=== PATIENT | male | born 1950 | race Caucasian/White ===

== ENCOUNTER 2018-04-27 07:46 | Emergency (ER) | payer OTHER ==
[2018-04-27] MEDS ORDERED: ONDANSETRON 4 MG/2 ML VIAL ONE (08:15)
[2018-04-27] MEDS ORDERED: NA CHLORIDE 0.9% 1,000 ML ONE (08:15)
[2018-04-27 08:23] LABS: Absolute Monocytes 0.5 K/uL (0.1-1.3); Absolute Neutrophil 7.2 K/uL (1.8-8.0); Basophils % 0.3 % (0-1.3); Eosinophils % 0.3 % (0-4.4); Hematocrit 48.1 % (39.6-49.0); Lymphocytes % 11.4 % (15.3-44.8); MPV 8.2 fL (7.6-11.3); Monocytes % 6.1 % (3.3-12.3); RBC Red Blood Cell Count 5.26 M/uL (4.33-5.43)
[2018-04-27 08:43] LABS: Albumin 3.6 g/dL (3.4-5.0); Bilirubin Direct 0.2 mg/dL (0-0.2); Bilirubin Total 0.6 mg/dL (0.2-1.0); Potassium 3.4 mmol/L (3.5-5.1); Protein, Total 7.6 g/dL (6.4-8.2)
--- NOTE | 2018-04-27 08:44 | RAD REPORT ---
EXAM DESCRIPTION: RAD - Chest Single View - 04/27/2018 8:34 am CLINICAL HISTORY: subjective fever post surgery Chest pain. COMPARISON: No comparisons FINDINGS: Portable technique limits examination quality. The lungs are grossly clear. The heart is normal in size. No displaced fractures. IMPRESSION: No acute intrathoracic process suspected.
--- NOTE | 2018-04-27 09:19 | RAD REPORT ---
EXAM DESCRIPTION: CTAbdomen Pelvis W Contrast - 04/27/2018 9:06 am CLINICAL HISTORY: Abdominal pain. postoperative prostatectomy;Abd pain;Nausea / vomiting COMPARISON: No comparisons TECHNIQUE: Biphasic CT imaging of the abdomen and pelvis was performed with 100 ml non-ionic IV cont rast. All CT scans are performed using dose optimization technique as appropriate and may include automated exposure control or mA/KV adjustment according to patient size. FINDINGS: The lung bases are clear.Small hiatal hernia is present The liver, spleen, pancreas, adrenal glands and kidneys are within normal limits. Small cysts are pre sent in both kidneys. Postsurgical changes are present in the pelvis of the recent prostatectomy. Mild inflammatory changes and fluid are seen along the pelvic sidewalls and in the inferior aspect of the pelvis. No abscess s een. Andino catheter is present with its tip in the urinary bladder. Bladder is decompressed. Moderate amount of air is seen in the bladder. There is a significant amount subcutaneous air in the abdomen and pelvis extending into the scrotal sac, likely all postoperative in etiology. There is no evidenc e of a bowel obstruction or significant ileus. Normal appendix. Mild lumbosacral degenerative changes. No fracture seen. IMPRESSION: Postsurgical changes are present in the pelvis of recent prostatectomy. No acute process or evidence of bowel obstruction or ileus. Small hiatal hernia is noted.
[2018-04-27 11:13] LABS: Urine Blood 3+ (NEG); Urine Glucose NEGATIVE (NEG); Urine Protein NEGATIVE (NEG)
[2018-04-27 12:49] LABS: Urine Bacteria <20 /HPF (NONE SEEN); Urine Culture Reflex Order NOT NEEDED
--- NOTE | 2018-04-27 14:00 | ER ---
Nurse's Notes [facility] Name: Juvenal Sutton Age: 67 yrs Sex: Male : 1950 Arrival Date: 04/27/2018 Time: 07:47 Bed 19 Private MD: out of town, doctor Diagnosis: Vomiting Presentation: 04/27 07:50 Presenting complaint: Patient states: N/V that began yesterday at 1500. Pt denies pain, ss but does reports that he had prostate surgery 6 days ago and is supposed to get his Andino out tomorrow. Transition of care: patient was not received from another setting of care. Onset of symptoms was April 26, 2018 at 15:00. Risk Assessment: Do you want to hurt yourself or someone else? Patient reports no desire to harm self or others. Initial Sepsis Screen: Does the patient meet any 2 criteria? Does the patient have a suspected source of infection? No. Patient's initial sepsis screen is negative. Care prior to arrival: None. 07:50 Method Of Arrival: Wheelchair ss 07:50 Acuity: ARTURO 3 ss Historical: - Allergies: 07:52 No Known Allergies; ss - Home Meds: 08:01 Cipro 500 mg Oral tab 1 tab every 12 hours [Active]; Colace 100 mg oral cap 1 cap 2 ss times per day [Active]; tramadol 50 mg Oral tab 1 tab every 6 hours [Active]; hydrochlorothiazide 12.5 mg Oral cap [Active]; losartan 50 mg oral tab [Active]; - PMHx: 08:01 Hypertension; Prostate CA; ss - PSHx: 08:01 prostatectomy; ss - Immunization history:: Adult Immunizations up to date. - Social history:: Smoking status: Patient/guardian denies using tobacco. - Ebola Screening: : Patient denies exposure to infectious person Patient denies travel to an Ebola-affected area in the 21 days before illness onset. Screenin:19 Abuse screen: Denies threats or abuse. Denies injuries from another. Nutritional pc1 screening: No deficits noted. Tuberculosis screening: No symptoms or risk factors identified. Fall Risk None identified. Assessment: 08:11 General: Appears uncomfortable, well groomed, Behavior is calm, cooperative. Pain: pc1 Complains of pain in right upper quadrant and left upper quadrant Pain does not radiate. Pain currently is 2 out of 10 on a pain scale. Quality of pain is described as pressure, Pain began 1 day ago. Is intermittent. Neuro: Level of Consciousness is awake, alert, obeys commands, Oriented to person, place, time, situation, Director Work are equal bilaterally Moves all extremities. Full function Speech is normal, Facial symmetry appears normal. Cardiovascular: Capillary refill < 3 seconds Patient's skin is warm and dry. Pulses are 2+ in right radial artery and left radial artery. Respiratory: Airway is patent Respiratory effort is even, unlabored, Respiratory pattern is regular, symmetrical, Breath sounds are clear bilaterally. GI: Abdomen is round non-distended, Bowel sounds present X 4 quads. Abd is soft and non tender X 4 quads. Reports vomiting, since yesterday at approximately 15:00 and stomach pressure Patient currently denies diarrhea, tolerance of fluids, tolerance of food, Stated that he is unable to keep food or liquids down. : Andino in place clamped. EENT: No deficits noted. No signs and/or symptoms were reported regarding the EENT system. Derm: Skin is intact, is healthy with good turgor, Skin is dry, Skin is pink, warm \T\ dry. Musculoskeletal: Circulation, motion, and sensation intact. Range of motion: intact in all extremities. 10:11 Reassessment: Patient and/or family updated on plan of care and expected duration. Pain pc1 level reassessed. Patient is alert, oriented x 3, equal unlabored respirations, skin warm/dry/pink. Stated that the pt does not feel as nauseated as before Patient states symptoms have improved. 11:15 Reassessment: Patient appears in no apparent distress at this time. Patient and/or jl7 family updated on plan of care and expected duration. Pain level reassessed. Patient is alert, oriented x 3, equal unlabored respirations, skin warm/dry/pink. 11:40 Reassessment: Adonis lowry ASSISTANT PROJECT MANAGER at bedside discussing plan of care. jl7 12:10 Reassessment: Provided pt with a cup of water, pt drank and tolerated well. jl7 13:01 Reassessment: Patient appears in no apparent distress at this time. Patient and/or jl7 family updated on plan of care and expected duration. Pain level reassessed. Patient is alert, oriented x 3, equal unlabored respirations, skin warm/dry/pink. Vital Signs: 07:52 Resp 18; Temp 97.9(TE); Weight 95.25 kg; Height 5 ft. 11 in. (180.34 cm); Pain 0/10; ss 08:01 BP 185 / 112; Pulse 104; Pulse Ox 96% on R/A; ss 09:15 BP 187 / 88; Pulse 94; Resp 17; Pulse Ox 96% ; pc1 09:17 BP 186 / 88; Pulse 91; Resp 18; Temp 98.0(O); Pulse Ox 98% on R/A; mh5 10:12 BP 163 / 83; Pulse 84; Resp 18; Pulse Ox 96% on R/A; Pain 0/10; pc1 10:53 BP 172 / 88; Pulse 83; Resp 16 S; Pulse Ox 95% on R/A; jl7 11:45 BP 161 / 83; Pulse 81; Resp 16 S; Pulse Ox 97% on R/A; jl7 13:01 BP 165 / 82; Pulse 79; Resp 18; Pulse Ox 98% ; Pain 0/10; pc1 14:00 BP 160 / 80; Pulse 80; Resp 16 S; Pulse Ox 100% on R/A; jl7 07:52 Body Mass Index 29.29 (95.25 kg, 180.34 cm) ED Course: 07:47 Patient arrived in ED. mr 07:47 Adonis Lowry NP is PHCP. pm1 07:47 Fernando Monsalve MD is Attending Physician. pm1 07:48 out of [facility], doctor is Private Physician. mr 07:52 Triage completed. ss 07:52 Arm band placed on right wrist. ss 08:00 Maxine Johnson, FRANCISCO is Primary Nurse. jl7 08:00 Pulse ox on. NIBP on. jl7 08:19 Patient has correct armband on for positive identification. Placed in gown. Bed in low pc1 position. Call light in reach. Side rails up X2. Adult w/ patient. 08:19 Inserted saline lock: 18 gauge in right forearm, using aseptic technique. pc1 08:22 Initial lab(s) drawn, by me, sent to lab. jl7 08:33 X-ray completed. Portable x-ray completed in exam room. Patient tolerated procedure sw well. 08:34 Chest Single View XRAY In Process Unspecified. EDMS 09:05 CT completed. Patient tolerated procedure well. Patient moved to CT via stretcher. Patient moved back from CT. 09:07 CT Abd/Pelvis - W/Contrast: IV contrast In Process Unspecified. EDMS 09:12 Patient taken to treatment room, Patient moved back from radiology. pc1 12:12 Served as a process helper during rectal exam. jl7 14:17 IV discontinued, intact, bleeding controlled, No redness/swelling at site. Pressure jl7 dressing applied. Administered Medications: 08:05 Drug: NS 0.9% 1000 ml Route: IV; Rate: 1000 ml; Site: right forearm; jl7 09:05 Follow up: IV Status: Completed infusion; IV Intake: 1000ml jl7 08:06 Drug: Zofran 4 mg Route: IVP; Site: right forearm; jl7 10:10 Follow up: Response: No adverse reaction; Marked relief of symptoms; Nausea is decreasedpc1 Intake: 09:05 IV: 1000ml; Total: 1000ml. jl7 Outcome: 13:59 Discharge ordered by . pm1 14:17 Attestation : I agree with everything documented by Adonis Iyer, Student Nurse. jl7 14:17 Discharged to home ambulatory. 14:17 Condition: stable 14:17 Discharge instructions given to patient, Instructed on discharge instructions, follow up and referral plans. medication usage, Demonstrated understanding of instructions, follow-up care, medications, Prescriptions given X 1. 14:18 Patient left the ED. jl7 Signatures: Dispatcher [employer] [facility] Cristina Gao Susan Rosa Vargas RN RN ss Warren, Shannon sw Marinas, Patrick, RAE ASSISTANT PROJECT MANAGER 1 Rhiannon Zhu [facility] Maxine Johnson RN RN jl7 Adonis Iyer [facility] Corrections: (The following items were deleted from the chart) 08:20 08:05 NS 0.9% 1000 ml IV at 1000 ml in right antecubital jl7 jl7 08:20 08:06 Zofran 4 mg IVP in right antecubital jl7 jl7
--- NOTE | 2018-04-27 14:01 | EDPHYS ---
Physician Documentation [facility] Name: Juvenal Sutton Age: 67 yrs Sex: Male : 1950 Arrival Date: 04/27/2018 Time: 07:47 Bed 19 Private MD: out of town, doctor ED Physician Fernando Monsalve HPI: 04/27 08:30 This 67 yrs old Male presents to ER via Wheelchair with complaints of pm1 Vomiting. 08:30 The patient presents to the emergency department with nausea, vomiting. Onset: The pm1 symptoms/episode began/occurred last night. Possible causes: unknown. The symptoms are aggravated by nothing. The symptoms are alleviated by nothing. Associated signs and symptoms: Pertinent negatives: abdominal pain, diarrhea, dysuria, fever. Severity of symptoms: in the emergency department the symptoms are unchanged. The patient has not experienced similar symptoms in the past. The patient has been recently seen by a physician: for apparently unrelated complaints, prostatectomy 6 days ago due to prostate cancer. Historical: - Allergies: 07:52 No Known Allergies; ss - Home Meds: 08:01 Cipro 500 mg Oral tab 1 tab every 12 hours [Active]; Colace 100 mg oral cap 1 cap 2 ss times per day [Active]; tramadol 50 mg Oral tab 1 tab every 6 hours [Active]; hydrochlorothiazide 12.5 mg Oral cap [Active]; losartan 50 mg oral tab [Active]; - PMHx: 08:01 Hypertension; Prostate CA; ss - PSHx: 08:01 prostatectomy; ss - Immunization history:: Adult Immunizations up to date. - Social history:: Smoking status: Patient/guardian denies using tobacco. - Ebola Screening: : Patient denies exposure to infectious person Patient denies travel to an Ebola-affected area in the 21 days before illness onset. ROS: 08:30 Constitutional: Negative for fever, chills, and weight loss, Eyes: Negative for injury, pm1 pain, redness, and discharge, ENT: Negative for injury, pain, and discharge, Neck: Negative for injury, pain, and swelling, Cardiovascular: Negative for chest pain, palpitations, and edema, Respiratory: Negative for shortness of breath, cough, wheezing, and pleuritic chest pain. 08:30 Back: Negative for injury and pain, : Negative for injury, bleeding, discharge, and swelling, MS/Extremity: Negative for injury and deformity, Skin: Negative for injury, rash, and discoloration, Neuro: Negative for headache, weakness, numbness, tingling, and seizure. 08:30 Abdomen/GI: Positive for nausea and vomiting, possible coffee ground emesis, Negative for abdominal pain, diarrhea, constipation. Exam: 12:30 Constitutional: This is a well developed, well nourished patient who is awake, alert, pm1 and in no acute distress. Head/Face: Normocephalic, atraumatic. Eyes: Pupils equal round and reactive to light, extra-ocular motions intact. Lids and lashes normal. Conjunctiva and sclera are non-icteric and not injected. Cornea within normal limits. Periorbital areas with no swelling, redness, or edema. ENT: Nares patent. No nasal discharge, no septal abnormalities noted. Tympanic membranes are normal and external auditory canals are clear. Oropharynx with no redness, swelling, or masses, exudates, or evidence of obstruction, uvula midline. Mucous membranes moist. Neck: Trachea midline, no thyromegaly or masses palpated, and no cervical lymphadenopathy. Supple, full range of motion without nuchal rigidity, or vertebral point tenderness. No Meningismus. Chest/axilla: Normal chest wall appearance and motion. Nontender with no deformity. No lesions are appreciated. Cardiovascular: Regular rate and rhythm with a normal S1 and S2. No gallops, murmurs, or rubs. Normal PMI, no JVD. No pulse deficits. Respiratory: Lungs have equal breath sounds bilaterally, clear to auscultation and percussion. No rales, rhonchi or wheezes noted. No increased work of breathing, no retractions or nasal flaring. Abdomen/GI: Soft, non-tender, with normal bowel sounds. No distension or tympany. No guarding or rebound. No evidence of tenderness throughout. 12:30 Back: No spinal tenderness. No costovertebral tenderness. Full range of motion. Skin: Warm, dry with normal turgor. Normal color with no rashes, no lesions, and no evidence of cellulitis. MS/ Extremity: Pulses equal, no cyanosis. Neurovascular intact. Full, normal range of motion. 12:30 Abdomen/GI: Rectal exam: rectal tone normal, Stool: brown, guaiac negative, Maxine SINGH. 12:30 Neuro: Orientation: is normal, Motor: is normal, moves all fours, Sensation: is normal, no obvious gross deficits. Vital Signs: 07:52 Resp 18; Temp 97.9(TE); Weight 95.25 kg; Height 5 ft. 11 in. (180.34 cm); Pain 0/10; ss 08:01 BP 185 / 112; Pulse 104; Pulse Ox 96% on R/A; ss 09:15 BP 187 / 88; Pulse 94; Resp 17; Pulse Ox 96% ; pc1 09:17 BP 186 / 88; Pulse 91; Resp 18; Temp 98.0(O); Pulse Ox 98% on R/A; mh5 10:12 BP 163 / 83; Pulse 84; Resp 18; Pulse Ox 96% on R/A; Pain 0/10; pc1 10:53 BP 172 / 88; Pulse 83; Resp 16 S; Pulse Ox 95% on R/A; jl7 11:45 BP 161 / 83; Pulse 81; Resp 16 S; Pulse Ox 97% on R/A; jl7 13:01 BP 165 / 82; Pulse 79; Resp 18; Pulse Ox 98% ; Pain 0/10; pc1 14:00 BP 160 / 80; Pulse 80; Resp 16 S; Pulse Ox 100% on R/A; jl7 07:52 Body Mass Index 29.29 (95.25 kg, 180.34 cm) ss MDM: 07:53 Patient medically screened. pm1 09:03 Data reviewed: vital signs. Data interpreted: Pulse oximetry: on room air is 96 %. pm1 Interpretation: normal. 12:15 Counseling: I had a detailed discussion with the patient and/or guardian regarding: lab pm1 results, radiology results. 12:30 ED course: Discussed case and reviewed patient workup with Dr. Monsalve, recommends PO pm1 challenge and stool guaiac. If negative patient can be discharged since his vital signs are stable, vomited a small quantity (1 cup), labs are stable, and CT abdomen is negative. 12:30 ED course: Patient passed PO challenge without any vomiting. Drank 1 cup of water. pm1 04/27 08:00 Order name: Basic Metabolic Panel; Complete Time: 09:00 pm1 04/27 08:00 Order name: CBC with Diff; Complete Time: 08:30 pm1 03/21 08:00 Order name: Creatinine for Radiology; Complete Time: 09:00 pm1 04/27 08:00 Order name: Hepatic Function; Complete Time: 09:00 pm1 04/27 08:00 Order name: Lipase; Complete Time: 09:00 pm1 04/27 08:00 Order name: Urine Microscopic Only; Complete Time: 12:59 pm1 04/27 08:00 Order name: IV Saline Lock; Complete Time: 08:21 pm1 04/27 08:00 Order name: CT Abd/Pelvis - W/Contrast: IV contrast; Complete Time: 09:27 pm1 04/27 08:00 Order name: Chest Single View XRAY; Complete Time: 09:00 pm1 04/27 08:09 Order name: Type And Screen; Complete Time: 09:14 pm1 04/27 09:13 Order name: ABO/RH no charge; Complete Time: 10:20 EDMS 04/27 10:16 Order name: Urine Dipstick--Ancillary (enter results); Complete Time: 11:35 kj1 04/27 08:00 Order name: Labs collected and sent; Complete Time: 08:21 pm1 04/27 08:00 Order name: Urine Dipstick-Ancillary (obtain specimen); Complete Time: 10:18 pm1 04/27 08:33 Order name: Labs - recollect needed; Complete Time: 08:46 kj1 Administered Medications: 08:05 Drug: NS 0.9% 1000 ml Route: IV; Rate: 1000 ml; Site: right forearm; jl7 09:05 Follow up: IV Status: Completed infusion; IV Intake: 1000ml [facility] 08:06 Drug: Zofran 4 mg Route: IVP; Site: right forearm; jl7 10:10 Follow up: Response: No adverse reaction; Marked relief of symptoms; Nausea is decreasedpc1 Disposition: 04/28 07:19 Co-signature as Attending Physician, Fernando Monsalve MD I agree with the assessment and kdr plan of care. Chart complete. Disposition: 04/27/18 13:59 Discharged to Home. Impression: Vomiting. - Condition is Stable. - Discharge Instructions: Nausea and Vomiting, Adult. - Prescriptions for Zofran 4 mg Oral Tablet - take 1 tablet by ORAL route every 8 hours As needed; 20 tablet. - Medication Reconciliation Form, Thank You Letter, Antibiotic Education, Prescription Opioid Use form. - Follow up: Emergency Department; When: As needed; Reason: Worsening of condition. Follow up: Private Physician; When: Tomorrow; Reason: As scheduled for your surgerical follow up. - Problem is new. - Symptoms have improved. Signatures: Dispatcher [employer] EDMS Fernando Monsalve MD MD kdr Rosa Rodrigues RN RN ss Adonis Jackson, RAE WELDING MACHINE OPERATOR/TENDER pm1 Maxine Johnson RN RN jl7 Bijal Dominguez kj1 Adonis Iyer pc1 Corrections: (The following items were deleted from the chart) 04/27 14:18 13:59 04/27/2018 13:59 Discharged to Home. Impression: Vomiting. Condition is Stable. jl7 Forms are Medication Reconciliation Form, Thank You Letter, Antibiotic Education, Prescription Opioid Use. Follow up: Emergency Department; When: As needed; Reason: Worsening of condition. Follow up: Private Physician; When: Tomorrow; Reason: As scheduled for your surgerical follow up. Problem is new. Symptoms have improved. pm1
== END 2018-04-27 14:18 | disposition home or self-care (01) ==
LOC: ER 07:46
DX: R11.2 Nausea with vomiting, unspecified (principal); C61 Malignant neoplasm of prostate; I10 Essential (primary) hypertension
CPT/HCPCS: 96361; 85025; 80048; 36415; 86900; 86850; 86901; 80076; 83690; 74177; 71045; 96374; 99285; Q9967; J7030; J2405; 81003; 81015